=== PATIENT | male | born 1960 | race Caucasian/White ===

== ENCOUNTER 2017-07-26 18:00 | Inpatient (IN) | payer MEDICAID ==
[~2017-07-26] VITALS: Ht 172.7 cm; Wt 83.5 kg
[~2017-07-26 18:00] MED LIST: ALBU18HF2; CARV3.1289 PO; COU5T PO; FURO-150 PO; INSU100I25 SQ; LISI-604 PO; POTA20TA19
[2017-07-26] MEDS ORDERED: normal saline 1000ML IV soln IV ONE (18:10)
[2017-07-26] MEDS ORDERED: CefTRIAXone 2gm/D5W 50ml 50 ML IV ONE (18:10)
[2017-07-26] MEDS ORDERED: TETanus/Pertussis (Acell)/Diphther VAC/PF (Tdap-Adult) 0.5ml syringe IMVAC ONE (18:10)
[2017-07-26] MEDS ORDERED: vancomycin/NS 1 GM ADD-VANTAGE 250 ML IV ONE (18:10)
[2017-07-26] MEDS ORDERED: acetaminophen 325mg tablet PO STA (18:10)
[2017-07-26 20:35] LABS: BASOPHILS # (AUTO) 0.1 X10'3 (0-0.2); BASOPHILS % (AUTO) 0.4 % (0-1); EOSINOPHILS % (AUTO) 0 % (0-6); HEMATOCRIT 39.3 % (42.0-52.0); HEMOGLOBIN 12.9 g/dl (14.0-17.9); LYMPHOCYTES # (AUTO) 0.5 X10'3 (1.1-4.8); LYMPHOCYTES % (AUTO) 3.7 % (21-51); MEAN CORPUSCULAR HEMOGLOBIN 27.6 PG (27.0-31.0); MEAN CORPUSCULAR HGB CONC 32.8 % (33.0-36.5); MEAN CORPUSCULAR VOLUME 84.3 FL (78-98); MEAN PLATELET VOLUME 8.4 FL (7.4-10.4); MONOCYTES # (AUTO) 0.1 X10'3 (0-0.9); MONOCYTES % (AUTO) 0.8 % (2-12); NEUTROPHILS # (AUTO) 13.4 X10'3 (1.8-7.7); NEUTROPHILS % (AUTO) 95.1 % (42-75); PLATELET COUNT 133 X10'3 (140-440); RED BLOOD COUNT 4.67 X10'6 (4.70-6.10); RED CELL DISTRIBUTION WIDTH 22.2 % (11.5-14.5); WHITE BLOOD COUNT 14.1 X10'3 (4.5-11.0)
[2017-07-26 20:47] LABS: INR 1.8 INR; PARTIAL THROMBOPLASTIN TIME 31 SECONDS (22-32); PROTHROMBIN TIME 18.2 SECONDS (9.0-12.0)
[2017-07-26 20:48] LABS: ANISOCYTOSIS 3+; MICROCYTOSIS 1+; PLATELET ESTIMATE NORMAL; POLYCHROMASIA 2+; TARGET CELLS 2+
[2017-07-26 20:49] LABS: SPHEROCYTES 1+
[2017-07-26 20:51] LABS: ALANINE AMINOTRANSFERASE 48 U/L (12-78); ALBUMIN 1.8 G/DL (3.4-5.0); ALKALINE PHOSPHATASE 89 IU/L (46-116); ANION GAP 12 (8-16); ASPARTATE AMINO TRANSFERASE 97 U/L (10-37); BILIRUBIN,TOTAL 3.8 MG/DL (0.1-1.0); BLOOD UREA NITROGEN 75 MG/DL (7-18); BUN/CREATININE RATIO 25.9 (5.4-32.0); CALCIUM 7.4 MG/DL (8.5-10.1); CHLORIDE 111 MMOL/L (99-107); GLUCOSE 106 MG/DL (70-104); MAGNESIUM 1.9 MG/DL (1.5-2.4); POTASSIUM 4.1 MMOL/L (3.5-5.1); SODIUM 145 MMOL/L (135-145); TOTAL CARBON DIOXIDE 21.6 MMOL/L (24-32); eGFR 23 ML/MIN
[2017-07-26 20:54] LABS: ALBUMIN/GLOBULIN RATIO 0.4 (1.1-1.5); TOTAL PROTEIN 6.4 G/DL (6.4-8.2)
[2017-07-26 21:09] LABS: CLARITY,URINE CLOUDY (Clear); COLOR,URINE YELLOW (Yellow); GLUCOSE, URINE NEGATIVE (Neg); KETONES,URINE NEGATIVE (Neg); LEUKOCYTE ESTERASE ,URINE LARGE (Neg); OCCULT BLOOD,URINE LARGE (Neg); PH,URINE 5.5 (4.8-8.0); PROTEIN,URINE 100 mg/dl (Neg)
[2017-07-26 21:26] LABS: NITRITES, URINE POSITIVE (Neg)
[2017-07-26 21:27] LABS: UA COLLECTION TYPE URINAL
[2017-07-26 21:28] LABS: WBC,URINE TNTC /HPF (0-4)
[2017-07-26 21:29] LABS: BACTERIA,URINE 4+ /HPF (Neg); SQUAMOUS EPITHELIAL CELL,UR FEW /LPF (FEW)
[2017-07-26 22:56] LABS: D-DIMER 30.02 MG/L FEU (0-0.50)
[2017-07-27] MEDS ORDERED: acetaminophen 325mg tablet PO PRN (02:00)
[2017-07-27] MEDS ORDERED: bisacodyl 10mg suppository rectal RC PRN (02:00)
[2017-07-27] MEDS ORDERED: mag hydrox/Alum hydrox/simeth 30ml oral suspension PO PRN (02:00)
[2017-07-27] MEDS: sodium chloride 0.45% 1,000 ML IV SCH ×3 (02:22→16:49)
[2017-07-27] MEDS ORDERED: CARV3.12 PO (02:47)
[2017-07-27] MEDS ORDERED: POTA20TA19 PO (02:47)
[2017-07-27] MEDS ORDERED: INSU100V12 SQ (02:47)
[2017-07-27] MEDS ORDERED: ALB0.5UD IH (02:47)
[2017-07-27] MEDS ORDERED: WARF5TAB PO (02:47)
[2017-07-27] MEDS ORDERED: FURO-150 PO (02:47)
[2017-07-27] MEDS ORDERED: dextrose ORAL solution 15 GM/59 ML bottle PO PRN ×4 (02:50→13:30)
[2017-07-27] MEDS ORDERED: dextrose 50%-water 50ml dispensing syringe IV PRN ×4 (02:50→13:30)
[2017-07-27] MEDS ORDERED: insulin Lispro (HumaLOG) vial - multi-dose SQ SCH (02:50)
[2017-07-27] MEDS ORDERED: glucagon, human recombinant 1mg kit SUBCUT PRN ×2 (02:50→13:30)
[2017-07-27] MEDS ORDERED: MESSAGE TO PHARMACY PO ONE ×2 (02:50→13:30)
[2017-07-27] MEDS: piperacillin-tazo 2.25gm/50ml 50 ML IV SCH ×2 (03:02→07:25)
[2017-07-27 03:14] LABS: HEMOGLOBIN A1C 7.4 % (4.5-6.2)
[2017-07-27 04:30] VITALS: BP 97/78
[2017-07-27 06:57] VITALS: BP 114/70
[2017-07-27] MEDS: heparin, porcine 5000 units/ml vial SQ SCH ×2 (07:11→19:08)
[2017-07-27] MEDS: carVEDilol 3.125mg tablet PO SCH ×2 (07:11→18:48)
[2017-07-27] MEDS ORDERED: furosemide 20MG tablet PO SCH (08:00)
[2017-07-27 09:16] LABS: INR 1.7 INR
[2017-07-27 10:28] LABS: BASOPHILS % (AUTO) 0.1 % (0-1); EOSINOPHILS % (AUTO) 0.1 % (0-6); HEMATOCRIT 47.3 % (42.0-52.0); HEMOGLOBIN 15.1 g/dl (14.0-17.9); LYMPHOCYTES # (AUTO) 0.7 X10'3 (1.1-4.8); LYMPHOCYTES % (AUTO) 4.3 % (21-51); MEAN CORPUSCULAR HEMOGLOBIN 27.2 PG (27.0-31.0); MEAN CORPUSCULAR VOLUME 84.9 FL (78-98); MEAN PLATELET VOLUME 8.5 FL (7.4-10.4); MONOCYTES # (AUTO) 0.3 X10'3 (0-0.9); NEUTROPHILS # (AUTO) 15.1 X10'3 (1.8-7.7); NEUTROPHILS % (AUTO) 93.5 % (42-75); PLATELET COUNT 120 X10'3 (140-440); RED BLOOD COUNT 5.57 X10'6 (4.70-6.10); RED CELL DISTRIBUTION WIDTH 22.9 % (11.5-14.5); WHITE BLOOD COUNT 16.1 X10'3 (4.5-11.0)
[2017-07-27 10:52] LABS: PLATELET ESTIMATE DECREASED; TOTAL CELLS COUNTED 100
[2017-07-27 10:53] LABS: ANISOCYTOSIS 3+; MICROCYTOSIS 1+; POLYCHROMASIA 1+; TARGET CELLS FEW
[2017-07-27 11:33] VITALS: BP 101/72
[2017-07-27 11:39] LABS: ALANINE AMINOTRANSFERASE 55 U/L (12-78); ALBUMIN 1.9 G/DL (3.4-5.0); ALBUMIN/GLOBULIN RATIO 0.4 (1.1-1.5); ALKALINE PHOSPHATASE 104 IU/L (46-116); ANION GAP 12 (8-16); ASPARTATE AMINO TRANSFERASE 103 U/L (10-37); BILIRUBIN,TOTAL 3.4 MG/DL (0.1-1.0); BLOOD UREA NITROGEN 72 MG/DL (7-18); BUN/CREATININE RATIO 29.1 (5.4-32.0); CHLORIDE 107 MMOL/L (99-107); CREATININE 2.47 MG/DL (0.60-1.10); GLUCOSE 206 MG/DL (70-104); POTASSIUM 4.4 MMOL/L (3.5-5.1); SODIUM 142 MMOL/L (135-145); TOTAL CARBON DIOXIDE 23.1 MMOL/L (24-32); TOTAL PROTEIN 7.3 G/DL (6.4-8.2); eGFR 27 ML/MIN
[2017-07-27 12:10] LABS: C DIFF ANTIGEN SEE COMMENTS (NEGATIVE); C DIFF SPECIMEN=DIARRHEA? ACCEPTABLE; C DIFFICILE TOXINS A&B NEGATIVE (Neg)
[2017-07-27 13:21] LABS: C DIFF TOXIN (LAMP) POSITIVE (NEG)
[2017-07-27] MEDS: vancomycin 125mg/5ml ORAL solution 5ml UD bottle PO SCH ×2 (15:02→19:22)
[2017-07-27] MEDS: cefepime 1GM/NS ADD-VANTAGE 100 ML IV SCH (17:48)
[2017-07-27 18:00] VITALS: BP 93/68
[2017-07-27] MEDS ORDERED: vancomycin/NS 1 GM ADD-VANTAGE 250 ML X 1 DOSE IV SCH (19:00)
[2017-07-27] MEDS: insulin Lispro (HumaLOG) vial - multi-dose SQ SCH (19:08)
[2017-07-27] MEDS: lactobacillus rhamnosus 10,000 MMU CELLS/CAPSULE PO SCH (19:08)
[2017-07-27] MEDS: HYDROcodone/acetaminophen 10/325mg tab PO PRN (19:09)
[2017-07-27] MEDS ORDERED: warfarin 5mg tablet PO SCH (21:00)
[2017-07-27] MEDS ORDERED: insulin glargine (Lantus) pen - multi-dose SQ SCH (21:00)
[2017-07-27] MEDS ORDERED: warfarin 4mg tablet PO ONE (21:00)
[2017-07-27] MEDS: insulin glargine (Lantus) pen - multi-dose SQ SCH (21:24)
[2017-07-27] MEDS: ketoconazole 2% cream 15gm TP SCH (21:24)
[2017-07-27 21:45] VITALS: BP 98/73
[2017-07-28] VITALS: BP 95/68
[2017-07-28] MEDS: cefepime 1GM/NS ADD-VANTAGE 100 ML IV SCH ×2 (00:15→08:46)
[2017-07-28] MEDS: vancomycin 125mg/5ml ORAL solution 5ml UD bottle PO SCH ×3 (02:51→14:04)
[2017-07-28 04:58] LABS: BASOPHILS % (AUTO) 0.1 % (0-1); EOSINOPHILS # (AUTO) 0.1 X10'3 (0-0.9); EOSINOPHILS % (AUTO) 0.6 % (0-6); HEMATOCRIT 43.7 % (42.0-52.0); HEMOGLOBIN 13.8 g/dl (14.0-17.9); LYMPHOCYTES # (AUTO) 0.8 X10'3 (1.1-4.8); LYMPHOCYTES % (AUTO) 7.9 % (21-51); MEAN CORPUSCULAR HEMOGLOBIN 27.1 PG (27.0-31.0); MEAN CORPUSCULAR HGB CONC 31.5 % (33.0-36.5); MEAN CORPUSCULAR VOLUME 85.8 FL (78-98); MEAN PLATELET VOLUME 8.8 FL (7.4-10.4); MONOCYTES # (AUTO) 0.3 X10'3 (0-0.9); MONOCYTES % (AUTO) 3.1 % (2-12); NEUTROPHILS # (AUTO) 9.4 X10'3 (1.8-7.7); NEUTROPHILS % (AUTO) 88.3 % (42-75); PLATELET COUNT 110 X10'3 (140-440); RED BLOOD COUNT 5.09 X10'6 (4.70-6.10); RED CELL DISTRIBUTION WIDTH 22.3 % (11.5-14.5); WHITE BLOOD COUNT 10.6 X10'3 (4.5-11.0)
[2017-07-28 05:04] LABS: INR 1.3 INR; PROTHROMBIN TIME 13.4 SECONDS (9.0-12.0)
[2017-07-28 05:14] LABS: ALANINE AMINOTRANSFERASE 51 U/L (12-78); ALBUMIN 1.7 G/DL (3.4-5.0); ALBUMIN/GLOBULIN RATIO 0.3 (1.1-1.5); ALKALINE PHOSPHATASE 101 IU/L (46-116); ANION GAP 13 (8-16); ASPARTATE AMINO TRANSFERASE 72 U/L (10-37); BILIRUBIN,TOTAL 2.4 MG/DL (0.1-1.0); BLOOD UREA NITROGEN 65 MG/DL (7-18); BUN/CREATININE RATIO 33.9 (5.4-32.0); CALCIUM 8.1 MG/DL (8.5-10.1); CHLORIDE 106 MMOL/L (99-107); CREATININE 1.92 MG/DL (0.60-1.10); GLUCOSE 95 MG/DL (70-104); POTASSIUM 4.1 MMOL/L (3.5-5.1); SODIUM 139 MMOL/L (135-145); TOTAL CARBON DIOXIDE 20.4 MMOL/L (24-32); eGFR 36 ML/MIN
[2017-07-28 06:56] VITALS: BP 90/61
[2017-07-28] MEDS: carVEDilol 3.125mg tablet PO SCH ×2 (08:00→20:02)
[2017-07-28] MEDS: insulin Lispro (HumaLOG) vial - multi-dose SQ SCH (08:44)
[2017-07-28] MEDS: heparin, porcine 5000 units/ml vial SQ SCH ×2 (08:46→20:03)
[2017-07-28] MEDS: ketoconazole 2% cream 15gm TP SCH ×2 (08:46→20:03)
[2017-07-28] MEDS: lactobacillus rhamnosus 10,000 MMU CELLS/CAPSULE PO SCH ×2 (08:46→20:03)
[2017-07-28] MEDS: sodium chloride 0.45% 1,000 ML IV SCH (08:47)
[2017-07-28 09:10] VITALS: BP 101/71
[2017-07-28 11:56] VITALS: BP 115/86
[2017-07-28] MEDS: HYDROcodone/acetaminophen 10/325mg tab PO PRN ×2 (14:04→22:53)
[2017-07-28 18:00] VITALS: BP 106/75
[2017-07-28] MEDS ORDERED: vancomycin inj 1,250 MG in normal saline 250ml IV soln 250 ML IV SCH (19:00)
[2017-07-28 20:00] VITALS: BP 106/75
[2017-07-28] MEDS ORDERED: warfarin 5mg tablet PO ONE (21:00)
[2017-07-28] MEDS: insulin glargine (Lantus) pen - multi-dose SQ SCH (21:25)
[2017-07-29] VITALS: BP 98/69
[2017-07-29] MEDS: sodium chloride 0.45% 1,000 ML IV SCH ×2 (00:49→15:38)
[2017-07-29 03:53] VITALS: BP 103/58
[2017-07-29 06:51] LABS: BASOPHILS % (AUTO) 0 % (0-1); EOSINOPHILS # (AUTO) 0.1 X10'3 (0-0.9); EOSINOPHILS % (AUTO) 1.2 % (0-6); HEMOGLOBIN 14.5 g/dl (14.0-17.9); LYMPHOCYTES # (AUTO) 0.9 X10'3 (1.1-4.8); LYMPHOCYTES % (AUTO) 7.9 % (21-51); MEAN CORPUSCULAR HEMOGLOBIN 27.1 PG (27.0-31.0); MEAN CORPUSCULAR HGB CONC 31.4 % (33.0-36.5); MEAN CORPUSCULAR VOLUME 86.1 FL (78-98); MEAN PLATELET VOLUME 9.7 FL (7.4-10.4); MONOCYTES # (AUTO) 0.1 X10'3 (0-0.9); MONOCYTES % (AUTO) 1.3 % (2-12); NEUTROPHILS # (AUTO) 9.8 X10'3 (1.8-7.7); NEUTROPHILS % (AUTO) 89.6 % (42-75); PLATELET COUNT 103 X10'3 (140-440); RED BLOOD COUNT 5.34 X10'6 (4.70-6.10); RED CELL DISTRIBUTION WIDTH 22.8 % (11.5-14.5)
[2017-07-29 06:57] VITALS: BP 104/72
[2017-07-29 07:08] LABS: INR 1.3 INR
[2017-07-29 07:20] LABS: ALANINE AMINOTRANSFERASE 44 U/L (12-78); ALBUMIN 1.7 G/DL (3.4-5.0); ALBUMIN/GLOBULIN RATIO 0.3 (1.1-1.5); ALKALINE PHOSPHATASE 128 IU/L (46-116); ANION GAP 13 (8-16); ASPARTATE AMINO TRANSFERASE 67 U/L (10-37); BILIRUBIN,TOTAL 2.8 MG/DL (0.1-1.0); BLOOD UREA NITROGEN 63 MG/DL (7-18); CALCIUM 8.1 MG/DL (8.5-10.1); CHLORIDE 104 MMOL/L (99-107); CREATININE 1.66 MG/DL (0.60-1.10); GLUCOSE 57 MG/DL (70-104); POTASSIUM 4.5 MMOL/L (3.5-5.1); SODIUM 139 MMOL/L (135-145); TOTAL CARBON DIOXIDE 22.1 MMOL/L (24-32); eGFR 43 ML/MIN
[2017-07-29] MEDS: heparin, porcine 5000 units/ml vial SQ SCH ×2 (08:00→20:28)
[2017-07-29] MEDS: carVEDilol 3.125mg tablet PO SCH ×2 (08:12→20:00)
[2017-07-29] MEDS: HYDROcodone/acetaminophen 10/325mg tab PO PRN (08:13)
[2017-07-29] MEDS: lactobacillus rhamnosus 10,000 MMU CELLS/CAPSULE PO SCH ×2 (08:14→20:27)
[2017-07-29] MEDS: CefTRIAXone 2gm/D5W 50ml 50 ML IV SCH (08:16)
[2017-07-29] MEDS: ketoconazole 2% cream 15gm TP SCH ×2 (08:20→20:00)
[2017-07-29] MEDS ORDERED: HYDROmorphone 1 mg/ml syringe IV PRN (08:45)
[2017-07-29] MEDS: vancomycin inj 1,250 MG in normal saline 250ml IV soln 250 ML IV SCH ×2 (09:09→20:28)
[2017-07-29 11:29] VITALS: BP 103/79
[2017-07-29] MEDS ORDERED: ipratropium/albuterol 3ml nebule NEB ONE (13:35)
[2017-07-29 18:40] VITALS: BP 101/70
[2017-07-29] MEDS ORDERED: warfarin 5mg tablet PO ONE (21:00)
[2017-07-29] MEDS: insulin glargine (Lantus) pen - multi-dose SQ SCH (22:04)
[2017-07-30] VITALS: BP 93/66
[2017-07-30] MEDS: HYDROcodone/acetaminophen 10/325mg tab PO PRN (00:11)
[2017-07-30 03:44] LABS: BASOPHILS % (AUTO) 0.2 % (0-1); EOSINOPHILS # (AUTO) 0.2 X10'3 (0-0.9); EOSINOPHILS % (AUTO) 1.4 % (0-6); HEMOGLOBIN 14.2 g/dl (14.0-17.9); LYMPHOCYTES # (AUTO) 0.8 X10'3 (1.1-4.8); LYMPHOCYTES % (AUTO) 6.9 % (21-51); MEAN CORPUSCULAR HEMOGLOBIN 27.2 PG (27.0-31.0); MEAN CORPUSCULAR HGB CONC 31.5 % (33.0-36.5); MEAN CORPUSCULAR VOLUME 86.1 FL (78-98); MEAN PLATELET VOLUME 9.1 FL (7.4-10.4); MONOCYTES # (AUTO) 0.5 X10'3 (0-0.9); MONOCYTES % (AUTO) 4.2 % (2-12); NEUTROPHILS # (AUTO) 9.7 X10'3 (1.8-7.7); NEUTROPHILS % (AUTO) 87.3 % (42-75); PLATELET COUNT 103 X10'3 (140-440); RED BLOOD COUNT 5.23 X10'6 (4.70-6.10); RED CELL DISTRIBUTION WIDTH 22.2 % (11.5-14.5); WHITE BLOOD COUNT 11.1 X10'3 (4.5-11.0)
[2017-07-30 03:49] LABS: INR 2.1 INR
[2017-07-30 03:56] LABS: ALANINE AMINOTRANSFERASE 39 U/L (12-78); ALBUMIN 1.6 G/DL (3.4-5.0); ALBUMIN/GLOBULIN RATIO 0.3 (1.1-1.5); ALKALINE PHOSPHATASE 115 IU/L (46-116); ANION GAP 11 (8-16); ASPARTATE AMINO TRANSFERASE 51 U/L (10-37); BILIRUBIN,TOTAL 2.1 MG/DL (0.1-1.0); BLOOD UREA NITROGEN 66 MG/DL (7-18); BUN/CREATININE RATIO 38.6 (5.4-32.0); CHLORIDE 104 MMOL/L (99-107); CREATININE 1.71 MG/DL (0.60-1.10); GLUCOSE 98 MG/DL (70-104); SODIUM 133 MMOL/L (135-145); TOTAL CARBON DIOXIDE 18.3 MMOL/L (24-32); TOTAL PROTEIN 6.7 G/DL (6.4-8.2); eGFR 41 ML/MIN
[2017-07-30 04:07] LABS: POTASSIUM 4.7 MMOL/L (3.5-5.1)
[2017-07-30 05:16] LABS: ANISOCYTOSIS 3+; PLATELET ESTIMATE DECREASED; TOTAL CELLS COUNTED 100
[2017-07-30 05:17] LABS: POLYCHROMASIA FEW
[2017-07-30 09:08] VITALS: BP 106/78
[2017-07-30] MEDS: carVEDilol 3.125mg tablet PO SCH (09:18)
[2017-07-30] MEDS: ketoconazole 2% cream 15gm TP SCH (09:18)
[2017-07-30] MEDS: lactobacillus rhamnosus 10,000 MMU CELLS/CAPSULE PO SCH (09:18)
[2017-07-30] MEDS: CefTRIAXone 2gm/D5W 50ml 50 ML IV SCH (09:19)
[2017-07-30] MEDS: vancomycin inj 1,250 MG in normal saline 250ml IV soln 250 ML IV SCH (09:20)
[2017-07-30] MEDS: heparin, porcine 5000 units/ml vial SQ SCH (09:20)
[2017-07-30 11:24] VITALS: BP 103/73
[2017-07-30] MEDS ORDERED: atropine sulfate 1% ophthalmic drops SL PRN (12:30)
[2017-07-30] MEDS: morphine 10 MG/5 ML UD oral solution PO PRN ×2 (13:18→22:42)
[2017-07-30] MEDS: LORazepam 0.5 MG tablet PO PRN (13:18)
[2017-07-30 18:30] VITALS: BP 106/71
[2017-07-30] MEDS ORDERED: VANCOMYCIN LEVEL IV NR (18:30)
[2017-07-30] MEDS ORDERED: VANCOMYCIN LEVEL IV ONE (20:30)
[2017-07-31 08:00] VITALS: BP 111/73
[2017-07-31] MEDS: morphine 10 MG/5 ML UD oral solution PO PRN (09:42)
[2017-07-31 11:53] VITALS: BP 111/77
[2017-07-31] MEDS: HYDROcodone/acetaminophen 10/325mg tab PO PRN (14:12)
[2017-07-31 18:30] VITALS: BP 115/80
[2017-07-31] MEDS ORDERED: VANCOMYCIN LEVEL IV ONE (18:30)
[2017-08-01] MEDS: morphine 10 MG/5 ML UD oral solution PO PRN ×2 (03:22→23:45)
[2017-08-01 08:00] VITALS: BP 129/87
[2017-08-01] MEDS: HYDROcodone/acetaminophen 10/325mg tab PO PRN (09:50)
[2017-08-01 11:38] VITALS: BP 129/87
[2017-08-01] MEDS: LORazepam 0.5 MG tablet PO PRN ×3 (12:17→23:45)
[2017-08-02] MEDS ORDERED: LORazepam 2 mg/ml vial IV PRN (00:25)
[2017-08-02 07:16] VITALS: BP 133/90
[2017-08-02] MEDS: morphine 10mg/0.5ml (conc. morphine) oral syringe PO PRN ×2 (10:01→14:59)
[2017-08-02 18:00] VITALS: BP 120/91
[2017-08-03 07:28] VITALS: BP 138/86
[2017-08-03] MEDS: HYDROcodone/acetaminophen 10/325mg tab PO PRN (17:06)
[2017-08-03 18:20] VITALS: BP 123/85
[2017-08-04 07:00] VITALS: BP 133/98
[2017-08-04 20:00] VITALS: BP 130/89
[2017-08-04] MEDS: HYDROcodone/acetaminophen 10/325mg tab PO PRN (20:09)
[2017-08-05 08:00] VITALS: BP 135/89
[2017-08-05] MEDS: HYDROcodone/acetaminophen 10/325mg tab PO PRN (16:20)
[2017-08-05 19:15] VITALS: BP 126/85
[2017-08-06 07:05] VITALS: BP 133/93
[2017-08-06 11:55] VITALS: BP 123/71
[2017-08-06] MEDS: HYDROcodone/acetaminophen 10/325mg tab PO PRN ×2 (12:28→16:49)
[2017-08-06 20:00] VITALS: BP 117/50
[2017-08-07 08:00] VITALS: BP 116/92
[2017-08-07 11:27] VITALS: BP 109/78
[2017-08-07 17:15] VITALS: BP 117/50
[2017-08-07] MEDS: HYDROcodone/acetaminophen 10/325mg tab PO PRN (19:04)
[2017-08-07 20:00] VITALS: BP 121/83
[2017-08-08] MEDS: HYDROcodone/acetaminophen 10/325mg tab PO PRN (05:11)
[2017-08-08 07:23] VITALS: BP 125/90
[2017-08-08 19:30] VITALS: BP 121/73
[2017-08-09 08:15] VITALS: BP 118/86
[2017-08-09 18:00] VITALS: BP 129/84
[2017-08-10] MEDS: mag hydrox/Alum hydrox/simeth 30ml oral suspension PO PRN ×2 (03:45→17:18)
[2017-08-10 07:18] VITALS: BP 116/77
[2017-08-10] MEDS: HYDROcodone/acetaminophen 10/325mg tab PO PRN (09:32)
[2017-08-10 18:00] VITALS: BP 123/81
[2017-08-11] MEDS: HYDROcodone/acetaminophen 10/325mg tab PO PRN (01:00)
[2017-08-11] MEDS: morphine 10mg/0.5ml (conc. morphine) oral syringe PO PRN ×2 (01:33→16:35)
[2017-08-11 07:00] VITALS: BP 110/75
[2017-08-11 11:00] VITALS: BP 110/77
[2017-08-11 18:00] VITALS: BP 117/78
[2017-08-12] MEDS: HYDROcodone/acetaminophen 10/325mg tab PO PRN (00:01)
[2017-08-12 07:00] VITALS: BP 118/94
[2017-08-12 19:00] VITALS: BP 120/91
[2017-08-12] MEDS: morphine 10mg/0.5ml (conc. morphine) oral syringe PO PRN (20:41)
[2017-08-13] MEDS: LORazepam 0.5 MG tablet PO PRN ×3 (05:43→23:41)
[2017-08-13 06:55] VITALS: BP 122/86
[2017-08-13] MEDS: morphine 10mg/0.5ml (conc. morphine) oral syringe PO PRN ×3 (14:15→23:42)
[2017-08-13 19:00] VITALS: BP 129/91
[2017-08-14] MEDS: morphine 10mg/0.5ml (conc. morphine) oral syringe PO PRN (00:14)
[2017-08-14 07:00] VITALS: BP 125/84
[2017-08-14] MEDS: LORazepam 0.5 MG tablet PO PRN ×2 (08:05→23:34)
[2017-08-14] MEDS: scopolamine 1.5mg patch.TD72 TD SCH (09:39)
[2017-08-15] MEDS: morphine 10mg/0.5ml (conc. morphine) oral syringe PO PRN ×3 (02:18→08:26)
[2017-08-15] MEDS: LORazepam 0.5 MG tablet PO PRN ×2 (02:18→07:34)
[2017-08-15 07:03] VITALS: BP 122/71
[2017-08-15 20:11] VITALS: BP 128/85
[2017-08-16] MEDS: morphine 10mg/0.5ml (conc. morphine) oral syringe PO PRN (05:15)
[2017-08-16 07:00] VITALS: BP 123/85
[2017-08-16] MEDS: LORazepam 0.5 MG tablet PO PRN (15:33)
[2017-08-16 18:54] VITALS: BP 125/81
[2017-08-16] MEDS: HYDROcodone/acetaminophen 10/325mg tab PO PRN (21:58)
[2017-08-17] MEDS: morphine 10mg/0.5ml (conc. morphine) oral syringe PO PRN (06:55)
[2017-08-17 07:00] VITALS: BP 127/88
[2017-08-17] MEDS: scopolamine 1.5mg patch.TD72 TD SCH (12:45)
[2017-08-17 18:00] VITALS: BP 136/82
[2017-08-18 08:30] VITALS: BP 120/87
[2017-08-18 20:00] VITALS: BP 124/92
[2017-08-18] MEDS: HYDROcodone/acetaminophen 10/325mg tab PO PRN (21:47)
[2017-08-19 08:00] VITALS: BP 125/90
[2017-08-19] MEDS: HYDROcodone/acetaminophen 10/325mg tab PO PRN ×2 (10:35→22:30)
[2017-08-19] MEDS: LORazepam 0.5 MG tablet PO PRN (10:36)
[2017-08-19 20:00] VITALS: BP 118/86
[2017-08-20] MEDS: diphenhydrAMINE 25mg capsule PO PRN (03:30)
[2017-08-20 07:11] VITALS: BP 118/88
[2017-08-20] MEDS: scopolamine 1.5mg patch.TD72 TD SCH (08:15)
[2017-08-20] MEDS: HYDROcodone/acetaminophen 10/325mg tab PO PRN ×3 (09:06→19:45)
[2017-08-20 19:42] VITALS: BP 124/67
[2017-08-20] MEDS: morphine 10mg/0.5ml (conc. morphine) oral syringe PO PRN (21:17)
[2017-08-21] MEDS: HYDROcodone/acetaminophen 10/325mg tab PO PRN ×4 (01:11→21:08)
[2017-08-21 07:02] VITALS: BP 124/73
[2017-08-21] MEDS: LORazepam 0.5 MG tablet PO PRN (17:34)
[2017-08-21 20:00] VITALS: BP 128/80
[2017-08-22] MEDS: LORazepam 0.5 MG tablet PO PRN ×5 (03:09→23:03)
[2017-08-22] MEDS: HYDROcodone/acetaminophen 10/325mg tab PO PRN ×2 (03:12→18:50)
[2017-08-22 07:00] VITALS: BP 124/86
[2017-08-22 20:00] VITALS: BP 122/96
[2017-08-22] MEDS: morphine 10mg/0.5ml (conc. morphine) oral syringe PO PRN ×2 (20:03→23:05)
[2017-08-23 07:00] VITALS: BP 151/103
[2017-08-23] MEDS: morphine 10mg/0.5ml (conc. morphine) oral syringe PO PRN ×2 (07:11→10:54)
[2017-08-23 11:00] VITALS: BP 162/99
[2017-08-23] MEDS: scopolamine 1.5mg patch.TD72 TD SCH (11:48)
[2017-08-23] MEDS: aripiprazole 5mg tablet PO SCH (13:12)
[2017-08-23 20:00] VITALS: BP 123/84
[2017-08-24] MEDS: LORazepam 0.5 MG tablet PO PRN (03:22)
[2017-08-24] MEDS: morphine 10mg/0.5ml (conc. morphine) oral syringe PO PRN ×4 (03:23→18:05)
[2017-08-24] MEDS: diphenhydrAMINE 25mg capsule PO PRN (03:30)
[2017-08-24 06:58] VITALS: BP 142/87
[2017-08-24] MEDS: aripiprazole 5mg tablet PO SCH (08:00)
[2017-08-24 18:00] VITALS: BP 126/78
[2017-08-24] MEDS: prazosin 1mg capsule PO SCH (20:26)
[2017-08-25 07:37] VITALS: BP 122/79
[2017-08-25] MEDS: HYDROcodone/acetaminophen 10/325mg tab PO PRN (16:37)
[2017-08-25 18:00] VITALS: BP 130/78
[2017-08-25] MEDS: prazosin 1mg capsule PO SCH (20:33)
[2017-08-25] MEDS: LORazepam 0.5 MG tablet PO PRN (21:11)
[2017-08-26 07:37] VITALS: BP 128/89
[2017-08-26] MEDS: scopolamine 1.5mg patch.TD72 TD SCH (08:07)
[2017-08-26] MEDS: HYDROcodone/acetaminophen 10/325mg tab PO PRN (08:12)
[2017-08-26 11:00] VITALS: BP 122/74
[2017-08-26 20:00] VITALS: BP 125/79
[2017-08-26] MEDS: prazosin 1mg capsule PO SCH (20:43)
[2017-08-27 07:00] VITALS: BP 122/90
[2017-08-27] MEDS ORDERED: furosemide 20MG tablet PO ONE (09:40)
[2017-08-27] MEDS: HYDROcodone/acetaminophen 10/325mg tab PO PRN ×2 (10:01→20:19)
[2017-08-27] MEDS: morphine 10mg/0.5ml (conc. morphine) oral syringe PO PRN (11:37)
[2017-08-27 12:04] VITALS: BP 133/91
[2017-08-27 20:00] VITALS: BP 122/86
[2017-08-27] MEDS: prazosin 1mg capsule PO SCH (20:18)
[2017-08-28] MEDS: HYDROcodone/acetaminophen 10/325mg tab PO PRN ×2 (03:35→20:33)
[2017-08-28 06:56] VITALS: BP 122/83
[2017-08-28] MEDS ORDERED: ondansetron 4mg rapidly disintigrating tab PO PRN (12:25)
[2017-08-28 19:00] VITALS: BP 148/95
[2017-08-28] MEDS: prazosin 1mg capsule PO SCH (20:34)
[2017-08-29 08:00] VITALS: BP 121/85
[2017-08-29] MEDS: scopolamine 1.5mg patch.TD72 TD SCH (08:40)
[2017-08-29] MEDS: HYDROcodone/acetaminophen 10/325mg tab PO PRN (10:54)
[2017-08-29] MEDS ORDERED: LORazepam 0.5 MG tablet PO PRN (15:50)
[2017-08-29 20:00] VITALS: BP 129/90
[2017-08-29] MEDS: tamsulosin 0.4mg capsule PO SCH (20:05)
[2017-08-29] MEDS: prazosin 1mg capsule PO SCH (20:05)
[2017-08-29 23:45] VITALS: BP 116/80
[2017-08-30] MEDS: morphine 10mg/0.5ml (conc. morphine) oral syringe PO PRN (06:49)
[2017-08-30 07:05] VITALS: BP 136/74
[2017-08-30] MEDS: HYDROcodone/acetaminophen 10/325mg tab PO PRN ×2 (11:16→20:27)
[2017-08-30 12:00] VITALS: BP 125/81
[2017-08-30 18:00] VITALS: BP 124/97
[2017-08-30] MEDS: mag hydrox/Alum hydrox/simeth 30ml oral suspension PO PRN (18:33)
[2017-08-30] MEDS: tamsulosin 0.4mg capsule PO SCH (20:27)
[2017-08-30] MEDS: prazosin 1mg capsule PO SCH (20:27)
[2017-08-31] VITALS: BP 115/84
[2017-08-31 07:07] VITALS: BP 124/88
[2017-08-31 11:41] VITALS: BP 130/89
[2017-08-31] MEDS: mag hydrox/Alum hydrox/simeth 30ml oral suspension PO PRN ×2 (14:34→20:05)
[2017-08-31 18:00] VITALS: BP 135/97
[2017-08-31] MEDS: HYDROcodone/acetaminophen 10/325mg tab PO PRN ×2 (19:23→23:49)
[2017-08-31] MEDS: prazosin 1mg capsule PO SCH (20:05)
[2017-08-31] MEDS: tamsulosin 0.4mg capsule PO SCH (20:05)
[2017-08-31] MEDS: morphine 10mg/0.5ml (conc. morphine) oral syringe PO PRN (21:26)
[2017-09-01] VITALS: BP 127/88
[2017-09-01] MEDS: morphine 10mg/0.5ml (conc. morphine) oral syringe PO PRN ×4 (03:57→23:24)
[2017-09-01 07:00] VITALS: BP 136/94
[2017-09-01] MEDS: mag hydrox/Alum hydrox/simeth 30ml oral suspension PO PRN ×3 (07:27→18:21)
[2017-09-01] MEDS: scopolamine 1.5mg patch.TD72 TD SCH (08:20)
[2017-09-01 11:00] VITALS: BP 132/99
[2017-09-01] MEDS ORDERED: furosemide 20MG tablet PO ONE (14:00)
[2017-09-01 18:00] VITALS: BP 140/96
[2017-09-01] MEDS: prazosin 1mg capsule PO SCH ×2 (19:44→21:21)
[2017-09-01] MEDS: tamsulosin 0.4mg capsule PO SCH ×2 (19:44→21:21)
[2017-09-01] MEDS: furosemide 20MG tablet PO ONE ×2 (19:44→21:21)
[2017-09-01] MEDS: HYDROcodone/acetaminophen 10/325mg tab PO PRN ×2 (19:45→21:21)
[2017-09-02] VITALS: BP 129/93
[2017-09-02] MEDS: HYDROcodone/acetaminophen 10/325mg tab PO PRN ×3 (02:51→23:40)
[2017-09-02] MEDS: morphine 10mg/0.5ml (conc. morphine) oral syringe PO PRN ×4 (05:35→21:19)
[2017-09-02 07:00] VITALS: BP 117/82
[2017-09-02] MEDS: mag hydrox/Alum hydrox/simeth 30ml oral suspension PO PRN ×4 (07:47→21:19)
[2017-09-02] MEDS: fluconazole 100mg tablet PO SCH (08:07)
[2017-09-02 11:00] VITALS: BP 133/91
[2017-09-02 19:30] VITALS: BP 129/82
[2017-09-02] MEDS: prazosin 1mg capsule PO SCH (21:12)
[2017-09-02] MEDS: tamsulosin 0.4mg capsule PO SCH (21:12)
[2017-09-03] VITALS: BP 145/87
[2017-09-03 07:21] VITALS: BP 131/95
[2017-09-03] MEDS: fluconazole 100mg tablet PO SCH (07:55)
[2017-09-03 12:00] VITALS: BP 111/78
[2017-09-03 19:00] VITALS: BP 121/99
[2017-09-03] MEDS: tamsulosin 0.4mg capsule PO SCH (21:20)
[2017-09-03] MEDS: prazosin 1mg capsule PO SCH (21:20)
[2017-09-04 00:11] VITALS: BP 136/97
[2017-09-04] MEDS: HYDROcodone/acetaminophen 10/325mg tab PO PRN ×2 (01:58→11:14)
[2017-09-04 08:00] VITALS: BP 137/92
[2017-09-04] MEDS: scopolamine 1.5mg patch.TD72 TD SCH (08:56)
[2017-09-04] MEDS: fluconazole 100mg tablet PO SCH (08:56)
[2017-09-04 11:00] VITALS: BP 120/90
[2017-09-04 20:00] VITALS: BP 136/100
[2017-09-04] MEDS: tamsulosin 0.4mg capsule PO SCH (20:12)
[2017-09-04] MEDS: prazosin 1mg capsule PO SCH (20:12)
[2017-09-05] VITALS: BP 130/91
[2017-09-05 07:00] VITALS: BP 121/83
[2017-09-05] MEDS: fluconazole 100mg tablet PO SCH (07:31)
[2017-09-05 08:34] LABS: BASOPHILS % (AUTO) 0.2 % (0-1); EOSINOPHILS # (AUTO) 0.4 X10'3 (0-0.9); EOSINOPHILS % (AUTO) 6.5 % (0-6); HEMATOCRIT 41.4 % (42.0-52.0); HEMOGLOBIN 13.5 g/dl (14.0-17.9); LYMPHOCYTES # (AUTO) 0.9 X10'3 (1.1-4.8); LYMPHOCYTES % (AUTO) 13.7 % (21-51); MEAN CORPUSCULAR HGB CONC 32.5 % (33.0-36.5); MEAN CORPUSCULAR VOLUME 85.9 FL (78-98); MEAN PLATELET VOLUME 8.1 FL (7.4-10.4); MONOCYTES # (AUTO) 0.5 X10'3 (0-0.9); NEUTROPHILS # (AUTO) 4.8 X10'3 (1.8-7.7); NEUTROPHILS % (AUTO) 71.6 % (42-75); PLATELET COUNT 164 X10'3 (140-440); RED BLOOD COUNT 4.82 X10'6 (4.70-6.10); RED CELL DISTRIBUTION WIDTH 21.5 % (11.5-14.5); WHITE BLOOD COUNT 6.7 X10'3 (4.5-11.0)
[2017-09-05 08:50] LABS: ALANINE AMINOTRANSFERASE 29 U/L (12-78); ALBUMIN 2.2 G/DL (3.4-5.0); ALBUMIN/GLOBULIN RATIO 0.4 (1.1-1.5); ALKALINE PHOSPHATASE 195 IU/L (46-116); ANION GAP 5 (8-16); ASPARTATE AMINO TRANSFERASE 35 U/L (10-37); BILIRUBIN,TOTAL 1.5 MG/DL (0.1-1.0); BLOOD UREA NITROGEN 24 MG/DL (7-18); BUN/CREATININE RATIO 19.8 (5.4-32.0); CALCIUM 8.6 MG/DL (8.5-10.1); CHLORIDE 97 MMOL/L (99-107); CREATININE 1.21 MG/DL (0.60-1.10); GLUCOSE 138 MG/DL (70-104); POTASSIUM 4.3 MMOL/L (3.5-5.1); SODIUM 133 MMOL/L (135-145); TOTAL CARBON DIOXIDE 31.5 MMOL/L (24-32); TOTAL PROTEIN 8.4 G/DL (6.4-8.2); eGFR 62 ML/MIN
[2017-09-05 10:16] LABS: ANISOCYTOSIS 3+; PLATELET ESTIMATE NORMAL; TOTAL CELLS COUNTED 100
[2017-09-05 10:17] LABS: HYPOCHROMASIA 1+; TARGET CELLS 1+
[2017-09-05 10:19] LABS: POIKILOCYTOSIS FEW
[2017-09-05 10:20] LABS: ELLIPTOCYTES FEW
[2017-09-05 10:21] LABS: TOXIC VACUOLATION 1+
[2017-09-05 11:20] VITALS: BP 144/96
== END 2017-09-05 16:40 | disposition home health service (06) | DRG 720 ==
LOC: ER 18:01 → EDBD 18:01 → ED HOLD 07-27 01:58 → SUR 3N 07-27 04:00
PROVIDERS: ADMIT Emergency Medicine; ATTEND Internal Medicine
PROC: 3E0234Z Introduction of Serum, Toxoid and Vaccine into Muscle, Percutaneous Approach (ICD-10-PCS; principal; 2017-07-27)
DX: A41.9 Sepsis, unspecified organism (principal); I42.9 Cardiomyopathy, unspecified; E11.22 Type 2 diabetes mellitus with diabetic chronic kidney disease; I50.22 Chronic systolic (congestive) heart failure; I13.0 Hypertensive heart and chronic kidney disease with heart failure and stage 1 through stage 4 chronic kidney disease, or unspecified chronic kidney disease; B35.1 Tinea unguium; E11.51 Type 2 diabetes mellitus with diabetic peripheral angiopathy without gangrene; F15.10 Other stimulant abuse, uncomplicated; L03.115 Cellulitis of right lower limb; J44.9 Chronic obstructive pulmonary disease, unspecified; B96.20 Unspecified Escherichia coli [E. coli] as the cause of diseases classified elsewhere; B18.2 Chronic viral hepatitis C; F43.10 Post-traumatic stress disorder, unspecified; L03.116 Cellulitis of left lower limb; B96.89 Other specified bacterial agents as the cause of diseases classified elsewhere; I51.3 Intracardiac thrombosis, not elsewhere classified; F32.9 Major depressive disorder, single episode, unspecified; N50.89 Other specified disorders of the male genital organs; N18.3 Chronic kidney disease, stage 3 (moderate); N39.0 Urinary tract infection, site not specified; Z51.5 Encounter for palliative care; Z66 Do not resuscitate; Z79.01 Long term (current) use of anticoagulants; Z86.73 Personal history of transient ischemic attack (TIA), and cerebral infarction without residual deficits; Z91.14 Patient's other noncompliance with medication regimen; Z59.0 Homelessness; Z88.0 Allergy status to penicillin; Z88.5 Allergy status to narcotic agent; Z23 Encounter for immunization
CPT/HCPCS: 36415; 70450; 71045; 73090; 73564; 78582; 80053; 81001; 82948; 83036; 83605; 83735; 84145; 85025; 85379; 85384; 85610; 85730; 87040; 87070; 87077; 87088; 87186; 87324; 87449; 87493; 90715; 93971; 94640; 96365; 96366; 96367; 97110; 97116; 97161; 97530; 99285; A4315; A4357; A6212; A6213; A6258; A9539; A9540; J0692; J0696; J1170; J1644; J1815; J2060; J2543; J3370; J7030; Q0163